=== PATIENT | female | born 1935 | race Caucasian/White ===

== ENCOUNTER 2019-07-16 10:04 | Inpatient (IN) | payer MEDICARE, BC ==
[~2019-07-16] VITALS: Ht 162.6 cm; Wt 86.0 kg
[2019-07-16] VITALS (11 sets, daily range): BP systolic 127–181; BP diastolic 51–100
[~2019-07-16 10:04] MED LIST: CALC-995 PO; COU5T PO; DIO80T PO; ENOX100S3 SQ; ESTR0.3T26 PO; LAMO100T2 PO; LANTUS SUBCUT; LEVO150T8 PO; MAGN400C PO; NADO20TA PO
[2019-07-16 10:32] LABS: BASOPHILS # (AUTO) 0.1 X10'3 (0-0.2); BASOPHILS % (AUTO) 0.8 % (0-1); EOSINOPHILS # (AUTO) 0.1 X10'3 (0-0.9); EOSINOPHILS % (AUTO) 1.8 % (0-6); LYMPHOCYTES # (AUTO) 1.2 X10'3 (1.1-4.8); LYMPHOCYTES % (AUTO) 15.4 % (21-51); MEAN CORPUSCULAR HEMOGLOBIN 25.8 PG (27.0-31.0); MEAN CORPUSCULAR HGB CONC 33.2 g/dL (33.0-36.5); MEAN CORPUSCULAR VOLUME 77.9 FL (78-98); MEAN PLATELET VOLUME 7.3 FL (7.4-10.4); MONOCYTES # (AUTO) 0.6 X10'3 (0-0.9); MONOCYTES % (AUTO) 7.4 % (2-12); NEUTROPHILS # (AUTO) 5.7 X10'3 (1.8-7.7); NEUTROPHILS % (AUTO) 74.6 % (42-75); PLATELET COUNT 271 X10'3 (140-440); RED BLOOD COUNT 1.97 X10'6 (4.20-5.60); RED CELL DISTRIBUTION WIDTH 15.5 % (11.5-14.5); WHITE BLOOD COUNT 7.6 X10'3 (4.5-11.0)
[2019-07-16 10:35] LABS: HEMATOCRIT 15.4 % (35.0-45.0); HEMOGLOBIN 5.1 g/dl (12.0-16.0)
[2019-07-16 10:44] LABS: PARTIAL THROMBOPLASTIN TIME 26 SECONDS (22-32)
[2019-07-16 10:45] LABS: ALANINE AMINOTRANSFERASE 14 U/L (12-78); ALBUMIN/GLOBULIN RATIO 0.9 (1.1-1.5); ALKALINE PHOSPHATASE 56 IU/L (46-116); ANION GAP 6 (8-16); ASPARTATE AMINO TRANSFERASE 15 U/L (10-37); BILIRUBIN,TOTAL 0.5 MG/DL (0.1-1.0); BLOOD UREA NITROGEN 15 MG/DL (7-18); BUN/CREATININE RATIO 20.8 (6.6-38.0); CALCIUM 8.3 MG/DL (8.5-10.1); CHLORIDE 106 MMOL/L (99-107); CREATININE 0.72 MG/DL (0.40-0.90); GLUCOSE 113 MG/DL (70-104); POTASSIUM 3.7 MMOL/L (3.5-5.1); SODIUM 138 MMOL/L (135-145); TOTAL CARBON DIOXIDE 26.3 MMOL/L (24-32); TOTAL PROTEIN 6.4 G/DL (6.4-8.2); eGFR 78 ML/MIN
[2019-07-16] MEDS ORDERED: LISI-600 PO (10:52)
[2019-07-16] MEDS ORDERED: APIX5TAB3 PO (10:52)
[2019-07-16] MEDS ORDERED: ESTR0.3T PO (10:52)
[2019-07-16] MEDS ORDERED: SOTA80TA73 PO (10:52)
[2019-07-16] MEDS ORDERED: AMLO5TAB16 PO (10:52)
[2019-07-16] MEDS ORDERED: ASPI81TA52 PO (10:52)
[2019-07-16] MEDS ORDERED: famotidine/PF 10 mg/ml inj IV ONE (11:15)
[2019-07-16] MEDS ORDERED: normal saline 1000ML IV soln IVB ONE (11:15)
[2019-07-16] MEDS ORDERED: pantoprazole 40 MG vial IV ONE (11:15)
--- NOTE | 2019-07-16 11:49 | NUR ---
[address] at this time. Tolerated procedure well, back to room and repositioned for comfort.
[2019-07-16] MEDS ORDERED: potassium Cl 20 mEq SR tablet PO PRN (12:45)
[2019-07-16] MEDS ORDERED: dextrose ORAL solution 15 GM/59 ML bottle PO PRN ×2 (12:45)
[2019-07-16] MEDS ORDERED: acetaminophen 650mg rectal suppository RC PRN (12:45)
[2019-07-16] MEDS ORDERED: dextrose 50%-water 50ml dispensing syringe IV PRN ×2 (12:45)
[2019-07-16] MEDS ORDERED: ondansetron/PF 4mg/2ml inj IV PRN (12:45)
[2019-07-16] MEDS ORDERED: magnesium 2GM in 50ml NS 50 ML IV PRN (12:45)
[2019-07-16] MEDS ORDERED: MESSAGE TO PHARMACY PO ONE (12:45)
[2019-07-16] MEDS ORDERED: potassium CL 10mEq/100ml bag 100 ML IV PRN ×2 (12:45)
[2019-07-16] MEDS ORDERED: acetaminophen 325mg tablet PO PRN (12:45)
[2019-07-16] MEDS ORDERED: magnesium 4gm in 100ml NS 100 ML IV PRN (12:45)
[2019-07-16] MEDS ORDERED: glucagon, human recombinant 1mg kit SUBCUT PRN (12:45)
[2019-07-16 13:19] LABS: HEMOGLOBIN A1C 6.4 % (4.5-6.2)
[2019-07-16 14:05] LABS: OCCULT BLOOD STOOL POSITIVE (Neg)
--- NOTE | 2019-07-16 14:15 | NUR ---
Patient in room PCU 3013. I have received report from Rosangela PEREIRA and had the opportunity to ask questions and assume patient care.
[2019-07-16] MEDS: lisinopril 20mg tablet PO SCH (15:10)
[2019-07-16] MEDS ORDERED: pantoprazole 40MG/NS 100ML BAG 100 ML IV SCH (16:00)
[2019-07-16] MEDS: pantoprazole 40MG/NS 100ML BAG 100 ML IV SCH ×2 (17:44→21:48)
[2019-07-16] MEDS: hydrALAZINE 20mg/ml inj. IV PRN (17:49)
--- NOTE | 2019-07-16 18:45 | NUR ---
Patient in room PCU 3013. I have received report from Saeid PEREIRA and had the opportunity to ask questions and assume patient care.
[2019-07-16] MEDS: estrogens, conjugated 0.3mg tablet PO SCH (20:00)
[2019-07-16] MEDS: K and/or MAG REPLACEMENT MC SCH (20:00)
[2019-07-16 20:04] LABS: HEMATOCRIT 24.9 % (35.0-45.0); HEMOGLOBIN 8.3 g/dl (12.0-16.0); MEAN CORPUSCULAR HEMOGLOBIN 28.1 PG (27.0-31.0); MEAN CORPUSCULAR HGB CONC 33.5 g/dL (33.0-36.5); MEAN CORPUSCULAR VOLUME 83.7 FL (78-98); MEAN PLATELET VOLUME 7.5 FL (7.4-10.4); PLATELET COUNT 199 X10'3 (140-440); RED BLOOD COUNT 2.97 X10'6 (4.20-5.60); RED CELL DISTRIBUTION WIDTH 16.8 % (11.5-14.5); WHITE BLOOD COUNT 9.9 X10'3 (4.5-11.0)
[2019-07-16] MEDS: insulin glargine (Lantus) pen - multi-dose SQ SCH (21:00)
--- NOTE | 2019-07-16 21:43 | NUR ---
Message sent to Pharm Need Premarin RX for this pt. It is not in either [employer] Thank you Cate RN # [id number]
[2019-07-16] MEDS: sotalol 80mg tablet PO SCH (21:48)
[2019-07-16] MEDS: amLODIPine 5mg tablet PO SCH (21:48)
[2019-07-17] VITALS (13 sets, daily range): BP systolic 118–173; BP diastolic 42–68
--- NOTE | 2019-07-17 00:43 | NUR ---
Per charge preparation technicianmichael Martin to retime 0100 hemogram for 0300 CMP labs as Hgb/Hct results from 190 draw are 8.3/24.9. 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
[2019-07-17] MEDS: pantoprazole 40MG/NS 100ML BAG 100 ML IV SCH ×5 (01:17→21:55)
--- NOTE | 2019-07-17 02:00 | NUR ---
Page Sent PAGER ID: [phone] MESSAGE: Mary Jamil room #[id number]. pt states she only takes Premarin tablet 0.3mg once in the AM. Order is for BID. 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 May I change the order to once daily? Cate PEREIRA [phone]
[2019-07-17 06:11] LABS: HEMOGLOBIN 7.2 g/dl (12.0-16.0); MEAN CORPUSCULAR HEMOGLOBIN 28.3 PG (27.0-31.0); MEAN CORPUSCULAR HGB CONC 34.3 g/dL (33.0-36.5); MEAN CORPUSCULAR VOLUME 82.4 FL (78-98); MEAN PLATELET VOLUME 8.1 FL (7.4-10.4); PLATELET COUNT 213 X10'3 (140-440); RED BLOOD COUNT 2.55 X10'6 (4.20-5.60); RED CELL DISTRIBUTION WIDTH 16.7 % (11.5-14.5)
[2019-07-17 06:32] LABS: ALANINE AMINOTRANSFERASE 14 U/L (12-78); ALBUMIN 2.6 G/DL (3.4-5.0); ALBUMIN/GLOBULIN RATIO 0.9 (1.1-1.5); ALKALINE PHOSPHATASE 51 IU/L (46-116); ANION GAP 8 (8-16); ASPARTATE AMINO TRANSFERASE 15 U/L (10-37); BILIRUBIN,TOTAL 1.4 MG/DL (0.1-1.0); BLOOD UREA NITROGEN 12 MG/DL (7-18); BUN/CREATININE RATIO 14.3 (6.6-38.0); CALCIUM 7.7 MG/DL (8.5-10.1); CHLORIDE 108 MMOL/L (99-107); CREATININE 0.84 MG/DL (0.40-0.90); GLUCOSE 95 MG/DL (70-104); MAGNESIUM 1.7 MG/DL (1.5-2.4); POTASSIUM 3.4 MMOL/L (3.5-5.1); SODIUM 140 MMOL/L (135-145); TOTAL CARBON DIOXIDE 23.6 MMOL/L (24-32); TOTAL PROTEIN 5.5 G/DL (6.4-8.2); eGFR 65 ML/MIN
--- NOTE | 2019-07-17 06:38 | NUR ---
Problems reprioritized. Patient report given, questions answered & plan of care reviewed with El PEREIRA.
[2019-07-17] MEDS: K and/or MAG REPLACEMENT MC SCH ×2 (08:00→20:00)
[2019-07-17] MEDS: sotalol 80mg tablet PO SCH ×2 (08:24→19:36)
[2019-07-17] MEDS: potassium Cl 20 mEq SR tablet PO PRN ×3 (08:24→22:18)
[2019-07-17] MEDS: lisinopril 20mg tablet PO SCH (08:25)
[2019-07-17] MEDS: estrogens, conjugated 0.3mg tablet PO SCH ×2 (08:26→19:37)
[2019-07-17] MEDS: levoTHYROXINE 75mcg tablet PO SCH (08:26)
[2019-07-17] MEDS: normal saline 1000ml 1,000 ML IV SCH (11:27)
--- NOTE | 2019-07-17 12:09 | NUR ---
Problems reprioritized. Patient report given, questions answered & plan of care reviewed with Madison PEREIRA.
[2019-07-17] MEDS ORDERED: MIDAZolam 5mg/5ml vial ONE (13:30)
[2019-07-17] MEDS ORDERED: fentaNYL/PF 50MCG/1 ML 2ML syringe ONE (13:30)
[2019-07-17] MEDS ORDERED: LIDOcaine Viscous 15ml cup ONE (13:31)
[2019-07-17] MEDS ORDERED: PEG 3350/Na sulf,bicarb,Cl/KCl oral sol 4 liter bottle PO ONE (14:25)
[2019-07-17] MEDS: naphazoline/pheniramine eye 1 DROP BOTTLE EACHEYE PRN ×2 (15:45→22:18)
--- NOTE | 2019-07-17 16:00 | NUR ---
PAGER ID: [phone] MESSAGE: [id number]. Mary Briceno. pt. is having colonoscopy on Saturday. do you want to start the Golytely today? it's in the eMAR for today. please advise. Madison, [id number]
--- NOTE | 2019-07-17 16:47 | NUR ---
Patient in room [place] [address]. I have received report from and had the opportunity to ask questions and assume patient care. Addendum: 07/17/19 at 1648 by Dana Rosenthal RN Patient in room [place] [address]. I have received report from RANDALL Farias and had the opportunity to ask questions and assume patient care. report received around 1200.
--- NOTE | 2019-07-17 17:00 | NUR ---
I agree with the documentation of RANDALL Farias.
--- NOTE | 2019-07-17 18:13 | NUR ---
Problems reprioritized. Patient report given, questions answered & plan of care reviewed with RANDALL Reese.
--- NOTE | 2019-07-17 18:25 | NUR ---
Patient in room PCU 3013. I have received report from Madison PEREIRA and had the opportunity to ask questions and assume patient care.
[2019-07-17 19:54] LABS: HEMATOCRIT 23.8 % (35.0-45.0); HEMOGLOBIN 7.9 g/dl (12.0-16.0); MEAN CORPUSCULAR HGB CONC 33.2 g/dL (33.0-36.5); MEAN CORPUSCULAR VOLUME 84.5 FL (78-98); MEAN PLATELET VOLUME 7.8 FL (7.4-10.4); PLATELET COUNT 223 X10'3 (140-440); RED BLOOD COUNT 2.82 X10'6 (4.20-5.60); RED CELL DISTRIBUTION WIDTH 17.5 % (11.5-14.5); WHITE BLOOD COUNT 8.6 X10'3 (4.5-11.0)
[2019-07-17] MEDS ORDERED: bisacodyl 5mg tablet.DR PO SCH (20:00)
[2019-07-17] MEDS: insulin glargine (Lantus) pen - multi-dose SQ SCH (21:00)
[2019-07-17] MEDS: amLODIPine 5mg tablet PO SCH (21:56)
[2019-07-18] MEDS: pantoprazole 40MG/NS 100ML BAG 100 ML IV SCH ×3 (01:29→11:43)
[2019-07-18 02:00] VITALS: BP 136/46
[2019-07-18 06:00] VITALS: BP 127/61
[2019-07-18] MEDS: normal saline 1000ml 1,000 ML IV SCH (06:20)
--- NOTE | 2019-07-18 06:23 | NUR ---
Problems reprioritized. Patient report given, questions answered & plan of care reviewed with Herbert PEREIRA.
[2019-07-18 06:24] LABS: HEMATOCRIT 26.5 % (35.0-45.0); HEMOGLOBIN 8.9 g/dl (12.0-16.0); MEAN CORPUSCULAR HEMOGLOBIN 28.4 PG (27.0-31.0); MEAN CORPUSCULAR HGB CONC 33.4 g/dL (33.0-36.5); MEAN PLATELET VOLUME 7.7 FL (7.4-10.4); PLATELET COUNT 232 X10'3 (140-440); RED BLOOD COUNT 3.12 X10'6 (4.20-5.60); RED CELL DISTRIBUTION WIDTH 17.3 % (11.5-14.5); WHITE BLOOD COUNT 8.8 X10'3 (4.5-11.0)
--- NOTE | 2019-07-18 06:33 | NUR ---
Patient in room PCU 3013. I have received report from Mary Ann and had the opportunity to ask questions and assume patient care.
[2019-07-18 06:54] LABS: ALANINE AMINOTRANSFERASE 16 U/L (12-78); ALBUMIN 2.9 G/DL (3.4-5.0); ALBUMIN/GLOBULIN RATIO 0.9 (1.1-1.5); ALKALINE PHOSPHATASE 55 IU/L (46-116); ANION GAP 10 (8-16); ASPARTATE AMINO TRANSFERASE 18 U/L (10-37); BILIRUBIN,TOTAL 1.4 MG/DL (0.1-1.0); BLOOD UREA NITROGEN 9 MG/DL (7-18); BUN/CREATININE RATIO 11.3 (6.6-38.0); CHLORIDE 108 MMOL/L (99-107); GLUCOSE 110 MG/DL (70-104); MAGNESIUM 1.9 MG/DL (1.5-2.4); SODIUM 140 MMOL/L (135-145); TOTAL CARBON DIOXIDE 21.9 MMOL/L (24-32); eGFR 69 ML/MIN
[2019-07-18] MEDS: K and/or MAG REPLACEMENT MC SCH ×2 (07:43→20:00)
[2019-07-18] MEDS: levoTHYROXINE 75mcg tablet PO SCH (07:53)
[2019-07-18] MEDS: estrogens, conjugated 0.3mg tablet PO SCH ×2 (07:53→20:00)
[2019-07-18] MEDS: lisinopril 20mg tablet PO SCH (07:53)
[2019-07-18] MEDS: sotalol 80mg tablet PO SCH ×2 (07:53→20:16)
[2019-07-18 11:00] VITALS: BP 152/55
[2019-07-18 13:18] LABS: HEMATOCRIT 26.5 % (35.0-45.0); HEMOGLOBIN 8.7 g/dl (12.0-16.0); MEAN CORPUSCULAR HEMOGLOBIN 27.9 PG (27.0-31.0); MEAN CORPUSCULAR HGB CONC 32.8 g/dL (33.0-36.5); MEAN CORPUSCULAR VOLUME 85.2 FL (78-98); MEAN PLATELET VOLUME 7.9 FL (7.4-10.4); PLATELET COUNT 258 X10'3 (140-440); RED BLOOD COUNT 3.11 X10'6 (4.20-5.60); RED CELL DISTRIBUTION WIDTH 17.8 % (11.5-14.5); WHITE BLOOD COUNT 9.1 X10'3 (4.5-11.0)
[2019-07-18 18:00] VITALS: BP 150/55
--- NOTE | 2019-07-18 18:00 | NUR ---
Patient in room PCU 3013. I have received report from RANDALL Godinez and had the opportunity to ask questions and assume patient care.
--- NOTE | 2019-07-18 18:11 | NUR ---
Problems reprioritized. Patient report given, questions answered & plan of care reviewed with BRITTANY.
[2019-07-18 20:15] VITALS: BP 147/48
[2019-07-18] MEDS: amLODIPine 5mg tablet PO SCH (20:16)
[2019-07-18] MEDS: insulin glargine (Lantus) pen - multi-dose SQ SCH (21:00)
[2019-07-18] MEDS: naphazoline/pheniramine eye 1 DROP BOTTLE EACHEYE PRN (21:27)
[2019-07-18 22:00] VITALS: BP 157/49
[2019-07-19] VITALS (19 sets, daily range): BP systolic 126–189; BP diastolic 27–75
[2019-07-19] MEDS: normal saline 1000ml 1,000 ML IV SCH ×2 (02:20→06:55)
[2019-07-19 06:03] LABS: ALANINE AMINOTRANSFERASE 13 U/L (12-78); ALBUMIN 2.6 G/DL (3.4-5.0); ALBUMIN/GLOBULIN RATIO 0.9 (1.1-1.5); ALKALINE PHOSPHATASE 49 IU/L (46-116); ANION GAP 6 (8-16); ASPARTATE AMINO TRANSFERASE 15 U/L (10-37); BILIRUBIN,TOTAL 0.9 MG/DL (0.1-1.0); BLOOD UREA NITROGEN 6 MG/DL (7-18); BUN/CREATININE RATIO 8.6 (6.6-38.0); CALCIUM 8.3 MG/DL (8.5-10.1); CHLORIDE 109 MMOL/L (99-107); GLUCOSE 124 MG/DL (70-104); POTASSIUM 3.5 MMOL/L (3.5-5.1); SODIUM 142 MMOL/L (135-145); TOTAL CARBON DIOXIDE 27.4 MMOL/L (24-32); TOTAL PROTEIN 5.4 G/DL (6.4-8.2); eGFR 80 ML/MIN
[2019-07-19 06:12] LABS: MAGNESIUM 1.7 MG/DL (1.5-2.4)
--- NOTE | 2019-07-19 06:56 | NUR ---
Problems reprioritized. Patient report given, questions answered & plan of care reviewed with RANDALL Seo.
--- NOTE | 2019-07-19 06:58 | NUR ---
Patient in room PCU 3013. I have received report from Keesha PEREIRA and had the opportunity to ask questions and assume patient care.
--- NOTE | 2019-07-19 07:19 | NUR ---
Patient in room PCU 3013. I have received report from RANDALL Taho and had the opportunity to ask questions and assume patient care. pt resting comfortably in room, alert and oriented, no complaints at this.
[2019-07-19] MEDS: levoTHYROXINE 75mcg tablet PO SCH (07:54)
[2019-07-19] MEDS: sotalol 80mg tablet PO SCH ×2 (07:54→21:32)
[2019-07-19] MEDS: bisacodyl 5mg tablet.DR PO SCH ×2 (07:54→20:00)
[2019-07-19] MEDS: lisinopril 20mg tablet PO SCH (07:55)
[2019-07-19] MEDS: estrogens, conjugated 0.3mg tablet PO SCH ×2 (07:55→20:00)
[2019-07-19] MEDS: K and/or MAG REPLACEMENT MC SCH ×2 (08:00→20:00)
[2019-07-19] MEDS ORDERED: PEG 3350/Na sulf,bicarb,Cl/KCl oral sol 4 liter bottle PO ONE (08:00)
[2019-07-19] MEDS ORDERED: MIDAZolam 5mg/5ml vial ONE (09:04)
[2019-07-19] MEDS ORDERED: fentaNYL/PF 50MCG/1 ML 2ML syringe ONE (09:04)
--- NOTE | 2019-07-19 11:09 | NUR ---
PATIENTS VITALS TAKEN- BP 189/66. GI NURSE AT BEDSIDE AND STATED NOT WORRIED ABOUT BP DUE TO MEDICATIONS BEING GIVEN FOR COLONOSCOPY. PT STABLE AND TAKEN DOWN TO GI LAB.
--- NOTE | 2019-07-19 12:29 | NUR ---
Pt returned from GI. Awake and alert. No needs at this time. Post op vitals initiated- 160/37, 98%, 69bpm
--- NOTE | 2019-07-19 17:17 | NUR ---
[place] Medication Administration: For this medication-pass time frame, all medication were reviewed, dispensed, administered and documented per hospital policy by RANDALL Ralph .
--- NOTE | 2019-07-19 17:17 | NUR ---
[place] documentation: I have reviewed and agree with all interventions, assessments performed and documented by RANDALL Ralph.
--- NOTE | 2019-07-19 18:35 | NUR ---
Problems reprioritized. Patient report given, questions answered & plan of care reviewed with RANDALL Anderson.
[2019-07-19] MEDS: insulin glargine (Lantus) pen - multi-dose SQ SCH (21:00)
[2019-07-19] MEDS: amLODIPine 5mg tablet PO SCH (21:32)
[2019-07-19] MEDS: naphazoline/pheniramine eye 1 DROP BOTTLE EACHEYE PRN (21:37)
[2019-07-20] VITALS (10 sets, daily range): BP systolic 113–183; BP diastolic 48–81
[2019-07-20] MEDS: normal saline 1000ml 1,000 ML IV SCH (05:30)
[2019-07-20 06:24] LABS: ALANINE AMINOTRANSFERASE 15 U/L (12-78); ALBUMIN 2.5 G/DL (3.4-5.0); ALKALINE PHOSPHATASE 46 IU/L (46-116); ANION GAP 6 (8-16); ASPARTATE AMINO TRANSFERASE 18 U/L (10-37); BILIRUBIN,TOTAL 0.7 MG/DL (0.1-1.0); BLOOD UREA NITROGEN 3 MG/DL (7-18); BUN/CREATININE RATIO 4.7 (6.6-38.0); CALCIUM 7.6 MG/DL (8.5-10.1); CHLORIDE 110 MMOL/L (99-107); CREATININE 0.64 MG/DL (0.40-0.90); GLUCOSE 128 MG/DL (70-104); MAGNESIUM 1.6 MG/DL (1.5-2.4); POTASSIUM 3.4 MMOL/L (3.5-5.1); SODIUM 141 MMOL/L (135-145); TOTAL CARBON DIOXIDE 25.2 MMOL/L (24-32); TOTAL PROTEIN 5.1 G/DL (6.4-8.2); eGFR 89 ML/MIN
--- NOTE | 2019-07-20 06:55 | NUR ---
Patient in room PCU 3012. I have received report from Monica PEREIRA and had the opportunity to ask questions and assume patient care.
[2019-07-20 07:09] LABS: BASOPHILS # (AUTO) 0.1 X10'3 (0-0.2); BASOPHILS % (AUTO) 1.2 % (0-1); EOSINOPHILS # (AUTO) 0.3 X10'3 (0-0.9); LYMPHOCYTES # (AUTO) 1.2 X10'3 (1.1-4.8); LYMPHOCYTES % (AUTO) 20.2 % (21-51); MEAN CORPUSCULAR HEMOGLOBIN 28.1 PG (27.0-31.0); MEAN CORPUSCULAR HGB CONC 32.9 g/dL (33.0-36.5); MEAN CORPUSCULAR VOLUME 85.5 FL (78-98); MEAN PLATELET VOLUME 7.9 FL (7.4-10.4); MONOCYTES # (AUTO) 0.5 X10'3 (0-0.9); MONOCYTES % (AUTO) 8.2 % (2-12); NEUTROPHILS % (AUTO) 65.4 % (42-75); PLATELET COUNT 201 X10'3 (140-440); WHITE BLOOD COUNT 6.2 X10'3 (4.5-11.0)
[2019-07-20] MEDS: levoTHYROXINE 75mcg tablet PO SCH (07:11)
[2019-07-20] MEDS: sotalol 80mg tablet PO SCH ×2 (07:11→21:40)
[2019-07-20] MEDS: lisinopril 20mg tablet PO SCH (07:14)
[2019-07-20] MEDS: estrogens, conjugated 0.3mg tablet PO SCH ×2 (07:15→20:00)
[2019-07-20] MEDS: bisacodyl 5mg tablet.DR PO SCH ×2 (07:21→20:00)
[2019-07-20 07:30] LABS: HEMATOCRIT 21.3 % (35.0-45.0)
--- NOTE | 2019-07-20 07:40 | NUR ---
Page sent to Dr. Saleem to notify of Critical Hgb and Hct. PAGER ID: [phone] MESSAGE: re [id number] Mary Jamil- HGb 7.0 Hct 21.3 today. 07/17: Hgb 8.7 Hct 26.5. Esmer, Eliane [phone]
[2019-07-20] MEDS: K and/or MAG REPLACEMENT MC SCH ×3 (08:00→20:00)
[2019-07-20] MEDS ORDERED: potassium CL 10mEq/100ml bag 100 ML IV PRN ×2 (09:35)
[2019-07-20] MEDS ORDERED: potassium Cl 20 mEq SR tablet PO PRN (09:35)
[2019-07-20] MEDS ORDERED: magnesium 4gm in 100ml NS 100 ML IV PRN (09:35)
[2019-07-20] MEDS ORDERED: magnesium Cl slow-release 64mg tablet PO PRN (09:35)
[2019-07-20] MEDS ORDERED: magnesium 2GM in 50ml NS 50 ML IV PRN (09:35)
--- NOTE | 2019-07-20 09:40 | NUR ---
Received and put in orders for type and screen for 1 unit of blood and potassium/magnesium replacement per Dr Saleem.
[2019-07-20 09:44] LABS: PLATELET ESTIMATE NORMAL
[2019-07-20 09:45] LABS: ANISOCYTOSIS 2+; POLYCHROMASIA 1+
[2019-07-20] MEDS: potassium Cl 20 mEq SR tablet PO PRN ×2 (12:46→17:06)
--- NOTE | 2019-07-20 12:56 | NUR ---
PAGER ID: [phone] MESSAGE: [id number] Mary Jamil. Has a headache 10/11. Pt states takes Tylenol at home. Can I get an order for pain med? Thanks! Loree PEREIRA ext [phone]
[2019-07-20] MEDS ORDERED: ondansetron 4mg rapidly disintigrating tab PO PRN (14:40)
[2019-07-20] MEDS: hydrALAZINE 20mg/ml inj. IV PRN (15:26)
--- NOTE | 2019-07-20 16:06 | NUR ---
PAGER ID: [phone] MESSAGE: re [id number] Yvrose Jamil abd CTA Pt highly allergic to contrast. States that she had to have 4 shots of epi post previous CT. Thanks, Eliane lanier [phone]
[2019-07-20] MEDS ORDERED: acetaminophen 325mg tablet PO PRN (17:00)
--- NOTE | 2019-07-20 17:52 | NUR ---
[place] documentation: I have reviewed and agree with all interventions, assessments performed and documented by RANDALL Ralph.
--- NOTE | 2019-07-20 18:47 | NUR ---
Problems reprioritized. Patient report given, questions answered & plan of care reviewed with RANDALL Anderson.
[2019-07-20 20:34] LABS: HEMATOCRIT 31.2 % (35.0-45.0); HEMOGLOBIN 10.5 g/dl (12.0-16.0); MEAN CORPUSCULAR HEMOGLOBIN 29.7 PG (27.0-31.0); MEAN CORPUSCULAR HGB CONC 33.6 g/dL (33.0-36.5); MEAN CORPUSCULAR VOLUME 88.3 FL (78-98); MEAN PLATELET VOLUME 7.7 FL (7.4-10.4); PLATELET COUNT 213 X10'3 (140-440); RED BLOOD COUNT 3.53 X10'6 (4.20-5.60); RED CELL DISTRIBUTION WIDTH 18.2 % (11.5-14.5); WHITE BLOOD COUNT 8.2 X10'3 (4.5-11.0)
[2019-07-20] MEDS: insulin glargine (Lantus) pen - multi-dose SQ SCH (21:00)
[2019-07-20] MEDS: amLODIPine 5mg tablet PO SCH (21:40)
[2019-07-20] MEDS: predniSONE 20 mg tablet PO SCH (21:40)
[2019-07-21] VITALS (7 sets, daily range): BP systolic 131–168; BP diastolic 45–63
[2019-07-21] MEDS: normal saline 1000ml 1,000 ML IV SCH (03:23)
--- NOTE | 2019-07-21 06:32 | NUR ---
Patient in room PCU 3012. I have received report from Monica PEREIRA and had the opportunity to ask questions and assume patient care.
[2019-07-21 06:39] LABS: ALANINE AMINOTRANSFERASE 18 U/L (12-78); ALBUMIN 2.8 G/DL (3.4-5.0); ALBUMIN/GLOBULIN RATIO 0.9 (1.1-1.5); ALKALINE PHOSPHATASE 54 IU/L (46-116); ANION GAP 8 (8-16); ASPARTATE AMINO TRANSFERASE 16 U/L (10-37); BILIRUBIN,TOTAL 1.2 MG/DL (0.1-1.0); BLOOD UREA NITROGEN 6 MG/DL (7-18); BUN/CREATININE RATIO 9.8 (6.6-38.0); CALCIUM 8.1 MG/DL (8.5-10.1); CHLORIDE 108 MMOL/L (99-107); CREATININE 0.61 MG/DL (0.40-0.90); GLUCOSE 204 MG/DL (70-104); MAGNESIUM 1.7 MG/DL (1.5-2.4); SODIUM 140 MMOL/L (135-145); TOTAL PROTEIN 5.8 G/DL (6.4-8.2); eGFR > 90 ML/MIN
[2019-07-21] MEDS: estrogens, conjugated 0.3mg tablet PO SCH ×2 (07:09→19:41)
[2019-07-21] MEDS: predniSONE 20 mg tablet PO SCH (07:09)
[2019-07-21] MEDS: levoTHYROXINE 75mcg tablet PO SCH (07:09)
[2019-07-21] MEDS: lisinopril 20mg tablet PO SCH (07:11)
[2019-07-21] MEDS: sotalol 80mg tablet PO SCH ×2 (07:12→19:34)
[2019-07-21] MEDS: K and/or MAG REPLACEMENT MC SCH ×4 (08:00→20:00)
[2019-07-21] MEDS: bisacodyl 5mg tablet.DR PO SCH ×2 (08:00→19:35)
--- NOTE | 2019-07-21 08:41 | NUR ---
Page sent to Dr. Davison requesting Benadryl order. PAGER ID: [phone] MESSAGE: re [id number] Mary Jamil- Pt to have abd CTA at 1030 today. Need order for Benadryl IV to be given prior to study due to allergy to contrast. Thanks, Eliane [phone]
[2019-07-21] MEDS: insulin Lispro (HumaLOG) vial - multi-dose SQ SCH ×3 (08:59→19:03)
[2019-07-21] MEDS: hydrALAZINE 20mg/ml inj. IV PRN (09:04)
--- NOTE | 2019-07-21 10:10 | NUR ---
Page sent to Dr. Davison requesting clarification on iodine allergy prep for CTA PAGER ID: [phone] MESSAGE: [id number] Mary Jamil- Per protocol, pt is not properly prepped for CTA. Policy is Prednisone 50mg x3 and Benadryl 50 PO. Pt has had Prednisone 20mg x2 doses. Thanks, Eliane x [phone]
[2019-07-21 11:36] LABS: BASOPHILS # (AUTO) 0.1 X10'3 (0-0.2); BASOPHILS % (AUTO) 0.8 % (0-1); EOSINOPHILS % (AUTO) 0 % (0-6); HEMATOCRIT 31.3 % (35.0-45.0); HEMOGLOBIN 10.5 g/dl (12.0-16.0); LYMPHOCYTES # (AUTO) 0.4 X10'3 (1.1-4.8); LYMPHOCYTES % (AUTO) 4.7 % (21-51); MEAN CORPUSCULAR HEMOGLOBIN 29.1 PG (27.0-31.0); MEAN CORPUSCULAR HGB CONC 33.4 g/dL (33.0-36.5); MEAN CORPUSCULAR VOLUME 87.3 FL (78-98); MEAN PLATELET VOLUME 7.1 FL (7.4-10.4); MONOCYTES # (AUTO) 0.2 X10'3 (0-0.9); MONOCYTES % (AUTO) 2.3 % (2-12); NEUTROPHILS # (AUTO) 7.4 X10'3 (1.8-7.7); NEUTROPHILS % (AUTO) 92.2 % (42-75); PLATELET COUNT 212 X10'3 (140-440); RED BLOOD COUNT 3.59 X10'6 (4.20-5.60); RED CELL DISTRIBUTION WIDTH 18.1 % (11.5-14.5)
--- NOTE | 2019-07-21 12:13 | NUR ---
Spoke with Dr. Davison on phone. New order for patient to have CT of abd and pelvis with oral and IV contrast, Prednisone 50mg timed x3 doses, Benadryl 50mg PO x1, and NPO after midnight for CT. MD aware of patient iodine and shellfish allergy.
--- NOTE | 2019-07-21 13:09 | NUR ---
Initial: Pt admit w/ increased weakness, nausea, epigastric pain, hx dark stool 1.5 weeks [employer] concerns for possible GIB. Pt advanced to carb controlled diet PO 100% avg meals meeting needs. No nausea, vomiting, bloody stool, or abdominal pain per EMR. LBM 07/18. Will continue to monitor. Rec: 1. continue carb controlled diet 2. bowel care as needed 3. wt per rx Addendum: 07/21/19 at [address] Amended: Links added.
--- NOTE | 2019-07-21 18:15 | NUR ---
Patient in room PCU 3012. I have received report from RANDLAL [place] and had the opportunity to ask questions and assume patient care.
--- NOTE | 2019-07-21 18:28 | NUR ---
Problems reprioritized. Patient report given, questions answered & plan of care reviewed with RANDALL Meneses.
[2019-07-21] MEDS: naphazoline/pheniramine eye 1 DROP BOTTLE EACHEYE PRN (19:36)
[2019-07-21] MEDS ORDERED: prednisone 10mg tablet PO ONE (20:00)
[2019-07-21] MEDS: insulin glargine (Lantus) pen - multi-dose SQ SCH (21:22)
[2019-07-21] MEDS: amLODIPine 5mg tablet PO SCH (21:24)
[2019-07-21] MEDS: diatr meglu/diatrizoate 30ml oral sol.-(3 dose) bottle PO SCH (21:28)
[2019-07-22 02:00] VITALS: BP 150/61
[2019-07-22] MEDS ORDERED: prednisone 10mg tablet PO ONE ×2 (02:00→08:00)
[2019-07-22 06:00] VITALS: BP 172/72
[2019-07-22 06:07] LABS: ALANINE AMINOTRANSFERASE 17 U/L (12-78); ALBUMIN 2.8 G/DL (3.4-5.0); ALBUMIN/GLOBULIN RATIO 0.9 (1.1-1.5); ALKALINE PHOSPHATASE 50 IU/L (46-116); ANION GAP 8 (8-16); ASPARTATE AMINO TRANSFERASE 17 U/L (10-37); BILIRUBIN,TOTAL 0.8 MG/DL (0.1-1.0); BLOOD UREA NITROGEN 12 MG/DL (7-18); BUN/CREATININE RATIO 18.5 (6.6-38.0); CHLORIDE 107 MMOL/L (99-107); CREATININE 0.65 MG/DL (0.40-0.90); GLUCOSE 225 MG/DL (70-104); MAGNESIUM 1.8 MG/DL (1.5-2.4); PHOSPHORUS 3.3 MG/DL (2.3-4.5); POTASSIUM 3.9 MMOL/L (3.5-5.1); SODIUM 139 MMOL/L (135-145); TOTAL CARBON DIOXIDE 24.2 MMOL/L (24-32); TOTAL PROTEIN 5.9 G/DL (6.4-8.2); eGFR 87 ML/MIN
[2019-07-22 06:17] LABS: BASOPHILS % (AUTO) 0.2 % (0-1); EOSINOPHILS % (AUTO) 0 % (0-6); HEMATOCRIT 28.1 % (35.0-45.0); HEMOGLOBIN 9.3 g/dl (12.0-16.0); LYMPHOCYTES # (AUTO) 0.4 X10'3 (1.1-4.8); LYMPHOCYTES % (AUTO) 4.9 % (21-51); MEAN CORPUSCULAR HEMOGLOBIN 28.6 PG (27.0-31.0); MEAN CORPUSCULAR HGB CONC 33.1 g/dL (33.0-36.5); MEAN CORPUSCULAR VOLUME 86.5 FL (78-98); MEAN PLATELET VOLUME 7.6 FL (7.4-10.4); MONOCYTES # (AUTO) 0.1 X10'3 (0-0.9); MONOCYTES % (AUTO) 1.4 % (2-12); NEUTROPHILS # (AUTO) 7.9 X10'3 (1.8-7.7); NEUTROPHILS % (AUTO) 93.5 % (42-75); PLATELET COUNT 201 X10'3 (140-440); RED BLOOD COUNT 3.25 X10'6 (4.20-5.60); RED CELL DISTRIBUTION WIDTH 18.5 % (11.5-14.5); WHITE BLOOD COUNT 8.4 X10'3 (4.5-11.0)
--- NOTE | 2019-07-22 06:25 | NUR ---
Problems reprioritized. Patient report given, questions answered & plan of care reviewed with RANDALL Ball.
[2019-07-22] MEDS: sotalol 80mg tablet PO SCH (07:25)
[2019-07-22] MEDS: lisinopril 20mg tablet PO SCH (07:27)
[2019-07-22] MEDS: estrogens, conjugated 0.3mg tablet PO SCH (07:28)
[2019-07-22] MEDS: diatr meglu/diatrizoate 30ml oral sol.-(3 dose) bottle PO SCH (07:33)
[2019-07-22] MEDS: levoTHYROXINE 75mcg tablet PO SCH (07:36)
[2019-07-22] MEDS: insulin Lispro (HumaLOG) vial - multi-dose SQ SCH ×2 (07:43→14:40)
[2019-07-22] MEDS ORDERED: diphenhydrAMINE 25mg capsule PO ONE (08:00)
[2019-07-22] MEDS: bisacodyl 5mg tablet.DR PO SCH (08:00)
[2019-07-22] MEDS: K and/or MAG REPLACEMENT MC SCH ×2 (08:00)
[2019-07-22] MEDS: normal saline 1000ml 1,000 ML IV SCH (10:20)
[2019-07-22 11:00] VITALS: BP 166/72
--- NOTE | 2019-07-22 11:39 | NUR ---
Notified Dr. Davison that patient's blood pressure has remained 160's-170's systolically. Asked for potential need for new blood pressure medication upon discharge. MD aware. No new orders at this time. Will continue to monitor.
[2019-07-22] MEDS ORDERED: PANT-47 PO (12:41)
[2019-07-22] MEDS ORDERED: FERR325T28 PO (12:41)
[2019-07-22] MEDS ORDERED: ASCO500C15 PO (12:41)
--- NOTE | 2019-07-22 15:45 | NUR ---
Discharge packet put together. Stable for discharge per MD orders. New prescriptions were e-scripted to [facility] in [place], [place]. PIV and telemetry discontinued. All Discharge instructions reviewed with patient and all questions answered. Belongings collected and sent with patient. Taxi cab awaited patient at [facility] in front of [place]. Patient wheeled down to and assisted into vehicle by VIVEK Amor. Cut patient armbands off at time of discharge.
--- NOTE | 2019-07-22 16:00 | NUR ---
[place] documentation: I have reviewed and agree with all interventions, assessments performed and documented by Lisandra Bearden.
--- NOTE | 2019-07-23 15:57 | NUR ---
Case Management DC follow up: Spoke to pt via telephone. s/p: Upper GI bleed, weakness/3 blood transfusions. Reports:"a little wobbly, but I am getting there" Denies: SOB, resp distress, acute/persistent CP, HEIN, blurry vision, N/V, emergent general pain, abd tenderness or distention, vertigo, syncope, fever, unexplained bruising, bleeding, black, tarry stools. Verbalizes understanding of s/s that would warrant 9-11/ER visit for further evaluation. Verbalizes understanding of current/new Rx protonix, Vit C, . 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 pt understands to stop Eliquis & asa until okayed by PCP, wastewater treatment engineer, Robert. Acknowledges need to follow-up/keep appts w/PCP/Heidi, specialists/wastewater treatment engineer/Earl will call back to schedule, Electrocardiograph Technician/Robert will call back to schedule for biopsy results, possible schedule capsule endoscopy. [facility] scheduled for intake at pt home 07/23/19. Questions answered, needs met at [place]. No further questions at this time.
== END 2019-07-22 15:50 | disposition home health service (06) | DRG 378 ==
LOC: ER 10:04 → ED HOLD 12:41 → PCU 3S 13:58
PROVIDERS: ADMIT Family Medicine; ATTEND Family Medicine
PROC: 30233N1 Transfusion of Nonautologous Red Blood Cells into Peripheral Vein, Percutaneous Approach (ICD-10-PCS; principal; 2019-07-16)
PROC: 0DJ08ZZ Inspection of Upper Intestinal Tract, Via Natural or Artificial Opening Endoscopic (ICD-10-PCS; 2019-07-17)
PROC: 0DBK8ZZ Excision of Ascending Colon, Via Natural or Artificial Opening Endoscopic (ICD-10-PCS; 2019-07-19)
DX: K57.31 Diverticulosis of large intestine without perforation or abscess with bleeding (principal); D62 Acute posthemorrhagic anemia; I48.20 Chronic atrial fibrillation, unspecified; G40.409 Other generalized epilepsy and epileptic syndromes, not intractable, without status epilepticus; E11.9 Type 2 diabetes mellitus without complications; I10 Essential (primary) hypertension; I78.1 Nevus, non-neoplastic; E03.9 Hypothyroidism, unspecified; Z88.0 Allergy status to penicillin; Z88.2 Allergy status to sulfonamides; Z86.73 Personal history of transient ischemic attack (TIA), and cerebral infarction without residual deficits; Z90.49 Acquired absence of other specified parts of digestive tract; Z95.0 Presence of cardiac pacemaker; Z82.61 Family history of arthritis; Z82.49 Family history of ischemic heart disease and other diseases of the circulatory system; Z79.899 Other long term (current) drug therapy; Z87.891 Personal history of nicotine dependence; Z90.710 Acquired absence of both cervix and uterus; Z91.013 Allergy to seafood
CPT/HCPCS: 36415; 36430; 43235; 45385; 71045; 74176; 76937; 80053; 82272; 82948; 83036; 83735; 84100; 84443; 84484; 85025; 85027; 85610; 85730; 86885; 86900; 86901; 86920; 87081; 93005; 96361; 96374; 96375; 97110; 97161; 97530; 99152; 99153; 99285; A4620; C1773; C9113; G0378; J0360; J1815; J2250; J2405; J3010; J3490; J7030; J7040; J7512; P9016; Q0163; Q9963